=== PATIENT | female | born 2000 | race Caucasian/White ===

== ENCOUNTER 2024-02-20 16:46 | Emergency (ER) | payer MEDICAID, SELFPAY ==
--- NOTE | ~2024-02-20 | US_ITS ---
FIRST TRIMESTER ULTRASOUND 02/20/2024 17:00 CDT Ordering provider: Vinh Matute MD History: . ECTOPIC . Comparison: None. FINDINGS: INTRAUTERINE GESTATIONAL SAC: Present. YOLK SAC: Present. POLE: Present. heart rate is 146 bpm. [place] rump length is 1.48 cm: 7 weeks and 6 days. Hypoechoic area seen in the uterus which may be subchorionic bleeding. UTERUS: The uterus measures 11.2 x 8.1 x 7.5 cm. in length which is within normal limits. No myometri al masses. FREE FLUID: None. OVARIES: Normal in size with the right measuring 3.9x 2.5x 2.8 and the left measuring 4.1x 2.5x 3.8 D oppler flow is demonstrated within both ovaries. ADNEXAL MASSES: None. IMPRESSION: Single live Intrauterine of 7 weeks and 6 days. Hypoechoic area in the uterus suggestive of subchorionic bleeding. Follow-up advised Reviewed, dictated and finalized at location A. IMPRESSION: Single live Intrauterine of 7 weeks and 6 days. Hypoechoic area in the uterus suggestive of subchorionic bleeding. Follow-up ad vised
[2024-02-20 17:07] VITALS: BP 93/67; PULSE 86; RESP 18; TEMP 36.7; O2SAT 100
--- NOTE | 2024-02-20 17:26 | ED.FEMALEGU ---
HPI - Female Genitourinary General Chief complaint: Vaginal Bleeding Stated complaint: 7 weeks , bleeding, no cramping Time Seen by Provider: 02/20/24 17:26 Source: patient History of Present Illness HPI Narrative: 23 YEARS OLD WHITE FEMALE CAME TO THE EMERGENCY ROOM BECAUSE OF VAGINAL SPOTTING MAXIMUM 3 TIMES OVER 1 WEEK. PATIENT IS TELLING ME THAT SHE IS 7 WEEKS , LAST MENSTRUAL PERIOD DECEMBER 30, 2023. PATIENT IS 4 PARA 2 1. PATIENT CURRENTLY IN DRUG REHAB, LAST METH USE 1999 PATIENT QUIT SMOKING FEW WEEKS AGO. PATIENT CURRENTLY ON NO MEDICATIONS. Related Data Allergies Allergy/AdvReac Type Severity Reaction Status Date / Time No Known Allergies Allergy Verified 02/20/24 17:27 Review of Systems Review of Systems: All systems reviewed & are unremarkable except as noted in HPI and below Exam Narrative: GENERAL APPEARANCE: WELL-DEVELOPED, WELL-NOURISHED SKIN: NORMAL COLOR HEAD: NORMOCEPHALIC, NONTRAUMATIC EYES: CLEAR CONJUNCTIVA ENT: OROPHARYNX NORMAL, EARS NORMAL, NOSE NORMAL NECK: SUPPLE, NONTENDER CHEST AND RESPIRATORY: AIRWAY PATENT, NO RESPIRATORY DISTRESS, NO ACCESSORY MUSCLE USE HEART: REGULAR RATE/RHYTHM ABDOMEN: SOFT, NONTENDER, NO ORGANOMEGALY, QUIET BOWEL SOUNDS VASCULAR: NORMAL PERIPHERAL PULSES, NORMAL CAPILLARY REFILL. MUSCULOSKELETAL: NORMAL RANGE OF MOTION, NONTENDER BACK NEUROLOGIC: ALERT AND ORIENTED ?3, MOTOR VEHICLE CLERK IS NORMAL TESTED, NO GROSS MOTOR DEFICIT Course Vital Signs Vital signs: Vital Signs Temperature 36.7 C 02/20/24 17:07 Pulse Rate 86 02/20/24 17:07 Respiratory Rate 18 02/20/24 17:07 Blood Pressure 93/67 L 02/20/24 17:07 Pulse Oximetry 100 02/20/24 17:07 Oxygen Delivery Room Air 02/20/24 17:07 Temperature 36.7 C 02/20/24 17:07 Pulse Rate 86 02/20/24 17:07 Respiratory Rate 18 02/20/24 17:07 Blood Pressure 93/67 L 02/20/24 17:07 Pulse Oximetry 100 02/20/24 17:07 Oxygen Delivery Room Air 02/20/24 17:07 MDM - Female Genitourinary MDM Narrative Medical decision making narrative: PATIENT CAME WITH INTERMITTENT SPOTTING MAXIMUM 3 TIMES OVER 1 WEEK, 7 WEEKS VITAL SIGN STABLE PHYSICAL EXAMINATION UNREMARKABLE DIFFERENTIAL DIAGNOSIS ECTOPIC , , BLOOD WORKUP TODAY SHOWED WBC OF 19.2 COULD BE SECONDARY TO URINALYSIS SHOWING EVIDENCE OF INFECTION PELVIC ULTRASOUND SHOWED: SINGLE LIVE INTRAUTERINE OF 7 WEEKS AND 6 DAYS, QUESTIONABLE SUBCHORIONIC BLEEDING. PATIENT DECLINED PELVIC EXAM AND WOULD LIKE TO GO HOME RIGHT AWAY. DISCHARGE THE PT WAS DISCHARGED TO HOME.THE PT,S CONDITION UPON DISCHARGE WAS FAIR,EDUCATION WAS PROVIDED TO THE PT IN REFERENCE TO THE FINAL IMPRESSION,DISCHARGE STUDY RESULTS,TREATMENT,PROGNOSIS AND NEED FOR FOLLOW UP . Differential Diagnosis Differential diagnosis: Likely urinary tract infection and other (ECTOPIC , THREATENED ) Medical Records Attestation: I reviewed the patient's medical records. Lab Data 02/20/24 18:03 Labs: Lab Results 02/20/24 02/20/24 Range/Units 17:28 18:03 WBC 19.2 H (4.5-10.0) K/mm3 RBC 4.09 L (4.2-5.4) M/mm3 Hgb 12.9 (12.0-15.0) g/dL Hct 37.9 (37.0-47.0) % MCV 92.7 (80-100) fl MCH 31.5 (26-34) pg MCHC 34.0 (32-36) g/dl RDW 13.0 (11.5-14.5) % Plt Count 339 (150-375) k/mm3 MPV 9.3 (7.4-10.4) fl Immature Gran % (Auto) 0.6 H (0-0.5) % Neut % (Auto) 69.9 (45.5-73.1) % Lymph % (Auto) 19.0 (18.3-44.2) % [place] % (Auto) 8.3 (2.6-8.5) % Eos % (Auto) 1.7 (0-4.4) % Baso % (Auto) 0.5 (0.2-1.2) % Lymph # (Auto) 3.65 H (0.9-3.2)
[2024-02-20 17:53] LABS: Amphetamine Screen Urine Negative (Negative); Barbiturate Screen Urine Negative (Negative); Benzodiazepines Screen Urine Negative (Negative); Cannabinoid Screen Urine Negative (Negative); Cocaine Screen Urine Negative (Negative); Methadone Screen Urine Negative (Negative); Opiate Screen Urine Negative (Negative); Phencyclidine Screen Urine Negative (Negative)
[2024-02-20 18:00] LABS: Add Urine Microscopic? YES; Appearance Urine Clear (Clear); Bacteria Urine None Seen /hpf; Bilirubin Urine Negative (Negative); Blood Urine 1+ (Negative); Color Urine Yellow (Yellow); Glucose Urine UA Negative (Negative); Ketones Urine Negative (Negative); Leukocyte Esterase Ur 2+ LEU/UL (Negative); Nitrate Urine Negative (Negative); Non Pathogenic Casts 0-2; Protein Urine Negative (Negative); RBC Urine 0-2 /hpf (0-2); Specific Grav Ur 1.005 (1.001-1.035); Squamous Epithelial Cell Urine Few /hpf (Few); Urobilinogen Urine 0.2 mg/dL (<2.0)
[2024-02-20] MEDS: SODIUM CHLORIDE 0.9% IV 1,000 ML 999 ML IV CONT (18:01)
[2024-02-20 18:08] LABS: Basophils Absolute Auto 0.1 K/mm3 (0.0-0.1); Basophils Percent Auto 0.5 % (0.2-1.2); Eosinophils Absolute Auto 0.3 K/mm3 (0-0.3); Eosinophils Percent Auto 1.7 % (0-4.4); Hematocrit 37.9 % (37.0-47.0); Hemoglobin 12.9 g/dL (12.0-15.0); Immature Granulocyte Absolute 0.12 K/mm3 (0.00-0.031); Immature Granulocyte Percent A 0.6 % (0-0.5); Lymphocytes Absolute Auto 3.65 K/mm3 (0.9-3.2); Mean Corpuscular Hemoglobin 31.5 pg (26-34); Mean Corpuscular Volume 92.7 fl (80-100); Mean Platelet Volume 9.3 fl (7.4-10.4); Monocytes Absolute Auto 1.6 K/mm3 (0.1-0.6); Monocytes Percent Auto 8.3 % (2.6-8.5); Neutrophils Absolute Auto 13.4 K/mm3 (1.3-6.7); Neutrophils Percent Auto 69.9 % (45.5-73.1); Platelet Count Result 339 k/mm3 (150-375); Red Blood Count 4.09 M/mm3 (4.2-5.4); White Blood Count 19.2 K/mm3 (4.5-10.0)
[2024-02-22 14:27] LABS: BEDSIDEPREGUCG Negative (Negative)
== END 2024-02-20 19:07 | disposition home or self-care (01) ==
PROVIDERS: Emergency Medicine; Emergency Provider Emergency Medicine
DX: O20.0 Threatened abortion (principal); Z3A.01 Less than 8 weeks gestation of pregnancy
CPT/HCPCS: 36415; 76801; 80307; 81001; 81025; 84702; 85025; 85461; 86850; 86900; 86901; 87086; 96360; 99284; J7030